=== PATIENT | female | born 1980 | race Caucasian/White ===

== ENCOUNTER 2022-11-09 08:09 | Outpatient (CLI) | payer BC, SELFPAY ==
--- NOTE | ~2022-11-09 | NM_ITS ---
EXAMINATION: NM hepatobiliary wo pharm DATE: 11/09/2022 11:33 INDICATION: Abdominal pain. COMPARISON: None. TECHNIQUE: 4.9 mCi Tc-99m mebrofenin (Choletec) was administered intravenously. After a delay, scint igraphic images of the abdomen were obtained for up to one hour 30 minutes. Then, the patient drank 8 oz Ensure, and imaging was continued for 60 minutes. FINDINGS: Activity progresses to the bowel and gallbladder. Gallbladder ejection fraction (GBEF) was 91%. Note that with this technique, normal GBEF >= 33%. IMPRESSION: 1. Normal hepatobiliary scintigraphy. Reviewed, dictated and finalized at location A.
== END 2022-11-09 08:10 | disposition home or self-care (01) ==
PROVIDERS: PCP Family Medicine; Visit Provider Nurse Practitioner Family
DX: K21.9 Gastro-esophageal reflux disease without esophagitis (principal); R10.9 Unspecified abdominal pain; R68.81 Early satiety
CPT/HCPCS: 78226; A9537

== ENCOUNTER 2024-02-03 09:14 | Outpatient (CLI) | payer BC, SELFPAY ==
--- NOTE | ~2024-02-03 | MM_ITS ---
EXAMINATION: MM diagnostic sofia BI w carlos HISTORY: Not dense: There are scattered areas of fibroglandular density. TECHNIQUE: Additional 3-D tomosynthesis images of the breasts were performed and synthetic 2-D images were generated. CAD analysis was submitted and interpreted. COMPARISON: Comparison to multiple prior studies sequentially, with oldest reviewed study dated 01/10. BREAST PARENCHYMAL COMPOSITION: Not dense: There are scattered areas of fibroglandular density. FINDINGS: There are no suspicious masses, calcifications or architectural distortion in either breast to suggest malignancy. IMPRESSION: 1. No mammographic evidence for malignancy in either breast. 2. Routine yearly screening mammogram and regular clinical breast examination are recommended. BI-RADS Category 1: Negative Reviewed, dictated and finalized at location B. IMPRESSION: 1. No mammographic evidence for malignancy in either breast. 2. Routine yearly screening mammogram and regular clinical breast examination a re recommended. BI-RADS Category 1: Negative
== END 2024-02-03 09:15 | disposition home or self-care (01) ==
LOC: MICIMG 09:16
PROVIDERS: PCP Family Medicine; Visit Provider Surgery
DX: R92.8 Other abnormal and inconclusive findings on diagnostic imaging of breast (principal)
CPT/HCPCS: 77062; 77066; G0279

== ENCOUNTER 2024-10-01 15:25 | Outpatient (CLI) | payer BC, SELFPAY ==
--- OUTSIDE RECORDS SUMMARY | 2024-10-01 15:52 | XMS_ITS | Clinical Summary ---
Author Organization [facility] Address [address] [place] [address] Care Team Providers Care Splunk Dashboard Developer Name Role Phone Isa Bee MD Primary Care Provider Allergies No known active allergies Medications multivitamin-Ca- iron-minerals tablet Take by mouth Active Surgical History Surgery Date Site/Laterality Comments UPPER GASTROINTESTINAL ENDOSCOPY COLONOSCOPY Medical History Medical History Date Comments GERD (gastroesophageal reflux disease) Social History Tobacco Use Types Packs/Day Years Used Date Smoking Tobacco: Never Smokeless Tobacco: Never Tobacco Cessation:Counseling Given: Not Answered AUDIT-C Answer Date Recorded Q1: How often do you have a drink containing alc ohol? Never 01/28/2023 Average Number of Drinks Not on file 023 Q3: How often do you have si x or more drinks on one occasion? 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 Gender Identity Not on file Sexual Orientation Not on file Obstetrics History Last Filed Vital Signs Vital Sign Reading Time Taken Comments Blood Pressure 124/70 01/28/2023 9:42 AM CDT Pulse 63 01/28/2023 9:42 AM CDT Temperature 36.6 C (97.8 F) 01/28/2023 8:03 AM CDT Respiratory Rate 12 01/28/2023 9:42 AM CDT Oxygen Saturation 100% 01/28/2023 9:42 AM CDT Inhaled Oxygen Concentration - - Weight 77.1 kg (170 lb) 01/28/2023 8:03 AM CDT Height 177.8 cm (5' 10) 01/28/2023 8:03 AM CDT Body Mass Index 24.39 01/28/2023 8:03 AM CDT Plan of Treatment Health Maintenance Due Date Last Done Comments Breast Cancer Screening-Mammogram 1979 Cervical Cancer Screening 1979 Depression Screening 1979 Hepatitis C Screening 1979 Varicella Vaccines (1 of 2 - 13+ 2-dose series) 10/19/1992 Hepatitis B Screening 10/19/1997 Regular Well Visit/Exam 18-64 10/19/1997 DTaP/Tdap/Td Vaccine (2 - Td or Tdap) 04/13/2023 04/13/2013 Covid-19 Vaccine (3 - season) 2023 06/16/2020, 05/10/2020 Influenza Vaccine (Season Ended) 2024 02/03/2020, 02/13/2019, 02/24/2018, Additional history exists HPV Vaccines Aged Out No longer eligi ble based on patient's age to complete this topic Pneumococcal vaccine <65 Aged Out No longer eligible based on patient's age to complete this topic Insurance [employer] [place] Advance Directives For more information, please contact: [phone] * Full Code (Latest Code Status on File) Date Activated Date Inactivated Comments 01/28/2023 7:59 AM 01/28/2023 2:38 PM Care Teams Splunk Dashboard Developer Relationship Specialty Start Date End Date Isa Bee MD [address] [place] [address] PCP - General Family Medicine 01/28/23
--- OUTSIDE RECORDS SUMMARY | 2024-10-01 15:52 | XMS_ITS | Referral Summary ---
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
[2024-10-01 16:18] LABS: CRP < 0.5 mg/dL (<1.0)
[2024-10-01 16:39] LABS: Erythrocyte Sedimentation Rate 12 mm/hr (0-20)
[2024-10-05 17:07] LABS: Immunoglobulin A 164 mg/dL (47-310); TTG IGA AB <1.0 U/mL
== END 2024-10-01 15:26 | disposition home or self-care (01) ==
LOC: ANHLAB 15:27
PROVIDERS: PCP Family Medicine; Visit Provider Nurse Practitioner
DX: R19.4 Change in bowel habit (principal); R19.7 Diarrhea, unspecified; R63.4 Abnormal weight loss
CPT/HCPCS: 36415; 82784; 84443; 85652; 86140

== ENCOUNTER 2024-10-06 02:04 | Day surgery (SDC) | payer BC, SELFPAY ==
[2024-10-05 13:16] VITALS: BMI 25.1
--- OUTSIDE RECORDS SUMMARY | 2024-10-06 02:06 | XMS_ITS | Data Portability ---
Author Organization [facility] Address [address] [place] [address] Care Team Providers Care Database Report Writer Name Role Phone BRYANT HENDRIX Primary Care Provider Assessment Encounter Date Assessment Date Assessment LastModified by Organization Details LastModified Time 09/16/2019 09/16/2019 Annual gynecological exam performed. Patient will come back in a year unless there are new symptoms. [email or web address] Not available 09/16/2019 11:48:51 10/11/2020 10/11/2020 Annual gynecological exam performed. Patient will come back in a year unless there are new symptoms. Suggest Calcium with Vitamin D if not eating in diet. Patient advised to get annual flu shot. Recommend yearly physicals and preform monthly breast exams. Genetic testing is available for patients with family history of cancer. Engage in safe sexual practices, use condoms. Encouraged to have daily exercise. Avoid tobacco and illicit drugs, moderation of alcohol. If BMI greater than 25 dietary consult advised. If you have any questions please call or email. [email or web address] Not available 10/11/2020 12:58:04 10/25/2021 10/25/2021 Annual gynecological exam performed. Patient will come back in a year unless there are new symptoms. Not available 10/25/2021 14:28:32 10/30/2022 10/30/2022 Annual gynecological exam performed. Patient will come back in a year unless there are new symptoms. Not available 10/30/2022 12:33:28 11/13/2023 11/13/2023 Annual gynecological exam performed. Patient will come back in a year unless there are new symptoms. [email or web address] Not available 11/13/2023 14:10:13 Plan of Treatment Reminders Order Date Submit Date Provider Last Modified By Organization Details Last Modified Time Details Appointments None recorded. Lab CMP, serum or plasma 2023 024 [facility] (Lab), [address], [place], [address], 5 05:01:23 lipid panel, blood 2023 024 [facility] (Lab), [address], [place], [address], 5 05:01:23 CBC w/ auto diff 2023 024 [facility] (Lab), [address], [place], [address], 5 05:01:23 HbA1c (hemoglobi n A1c), blood 2023 024 [facility] (Lab), [address], [place], [address], 5 05:01:23 TSH, serum or plasma 2023 024 [facility] (Lab), [address], [place], [address], 5 05:01:23 25-hydroxy vitamin D2 + 25-hydroxy vitamin D3, QN, serum or plasma 2023 024 [facility] (Lab), [address], [place], [address], 5 05:01:23 hormone panel, serum or plasma 2023 024 [facility] (Lab), [address], [place], [address], 5 05:01:23 Referral None recorded. Procedures None recorded. Surgeries None recorded. Imaging MAMMO, screening, bilateral 2022 023 [facility] - Radiology Department, [address] , [place], [address], 3 13:50:28 Medication Orders None recorded. Patient TargetsNo targets recorded. Patient InstructionsNo instructions recorded. Reason for Referral None Reported. Results Created Date Observation Date Name Description Value Unit Range Abnormal Flag Note LastModifiedBy Organization Detail LastModifiedTime 09/16/19 20 09/18/2019 pap, LB Pap test thin prep Negati ve for Intrae pithel ial Lesion or Malign qi normal ACCES EVIE #: [id number] Sourc e: Cervi grace/E ndoce rvica l LMP: 08/30 Date Taken : 09/15 Speci men Type: ThinP rep Vial Date Repor juju: 2019 Clini grace Data: Cytot ech: Rei grove, CT( CP) Date Repor juju: 2019 Speci men Adequ acy: Satis facto ry for evalu ation Endoc ervic al/tr ansfo rmati on zone compo nent prese nt Gener al Categ oriza tion: NEGAT CHRISTINE FOR INTRA EPITH ELIAL LESIO N OR BUCKY JAY This speci men has been milton zed by the ThinP rep Imagi ng Syste m, an inter activ e compu ter syste m which gayle ts the lab in the scree jeaneth of ThinP rep Pap Test slide s. Candeo imagi ng, the slide was revie wed by a Cytot echno logis t and/o r Patho logis t. D N A A S S A Y S R E P O R T TEST NAME RESUL TS ----- ---- ----- -- HPV High Risk Scree n (TMA) ThinP rep Vial The human papil lomav irus (HPV) High Risk Scree n is an FDA-a pprov ed in-vi tro ampli fied nucle ic acid test for the quali tativ e detec tion of E6/E7 viral mRNA. Resul ts shogerald d be corre lated with patie nt prese ntati on, histo ry, cervi grace cytol ogy and other clini grace and labor atory findi ngs. See https ://[employer]/s ites/ defau lt/fi 0 /AW- 52600 _002_ 01.pd f for rosa er infor abbey n. Test perfo rmed by [employer] [facility], d/b/a [facility] roup, [address], [place] [address] , [place] ra, DO, Labor atory Dire tor. HPV High Risk *HPV NOT DETEC JUJU (TYPE S 16, 18, 31, 33, 35, 39, 45, 51, 52, 56, 58, 59, 66, 68) *HPV: The human papil lomav irus (HPV) High Risk Mark mejai is an FDA-a pprov ed in-vi tro ampli fied nucle ic acid test for the quali tativ e detec tion of E6/E7 viral mRNA. Resul rafael gooden lated with patijames nt prese ntati on, histo ry, cervi grace cytol ogy and other clini grace and labor atory findi ngs. See https ://[employer]/s ites/ defau lt/fi 018-0 /AW- 15511 _002_ 01.pd f for furvickie er infor abbey n. Test perfo rmed by [employer] [facility], d/b/a Ran rincon, [address], [place] [address] , [place] ra, , Labor atory Dire tor. End of Repor t Techn ical servi tomeka provi ded by [employer], d/b/a Ran rincon, [address] [place] [address] Gregorio Sinclair MD, Labor ator Dire tor. Case revie wed and diagn osis rende red at [employer] [facility], d/b/a Ran roup, [address] [place] [address] Gregorio Sinclair MD, [facility] tor. CONFI DENTI AL Not Available [facility] ([facility]) [address], [place], [address], 09/18/2019 11:54:29 09/16/19 20 09/17/2019 HPV DNA, high- risk HPV high risk NOT DETECT ED normal Not Available [facility] ([facility]) [address], [place], [address], 09/18/2019 11:54:30 10/26/19 22 10/25/2021 IMAGE GUIDE D PAP AND HPV REGAR DLESS image guided Pap, HPV regardless of Pap result SEE RESULT S BELOW CASE REPOR T: Cytol ogy Gynec ologi grace Repor t Case: [id number] Autho smiley schwarz Provi ian: Cristo Prather Colle cted: 10/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 Alber vargas d by Gracy Britt , CT on 2021 at 4:18 PM ----- ----- ----- ----- ----- ----- ----- ----- ----- ----- ----- ----- ----- ----- ----- ----- ----- ---- HPV RESUL TS: HPV mRNA E6/E7 : No HPV mRNA Detec juju NOTE: This high risk HPV mRNA assay detec ts fourt een high- risk HPV types (16, 18, 31, 33, 35, 39, 45, 51, 52, 56, 58, 59, 66, 68) witho ut diffe renti ation . COMME NT: Note: This speci men was revie wed by a Cytot echno logis t and/o r Patho logis t (as indic ated in this repor t) after evalu ation using the Thinp rep Imagi ng Syste m. CLINI GRACE INFOR MATIO N: Menst rual Statu s: LMP (if appli cable ): Clini grace Histo ry/Pr eviou s Pap: Type of Neopl kierra (if appli cable ): Signi fican t Clini grace Findi ngs: Other Histo ry: Hormo ramo (if appli cable ): PAP EDUCA CHASITY L NOTE: The Pap Test is a scree jeaneth test with an inher ent false negat christine rate. Liqui d-bas ed sampl ing may decre ase, but will not elimi emre, false negat christine resul ts. A negat christine resul t does not precl ude the prese nce and/o r devel opmen t of disea se, since the prese nce of abnor mal cells in the sampl e depen ds on the locat ion of the lesio n and sampl ing techn ique. Jimi nued regul ar scree jeaneth is the best metho d of cance r preve ntion . If repor juju cytol ogic findi ng do not corre late with physi grace and/o r histo rical findi ngs, furth er inves tigat ion is recom antonio d, as clini jean-paul mcnair nted. 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 Elect melokia lukekylah sam d by Lali Doherty ed, CT on 2022 at 9:39 PM ----- ----- ----- ----- ----- ----- ----- ----- ----- ----- ----- ----- ----- ----- ----- ----- ----- ---- HPV RESUL TS: HPV mRNA E6/E7 : No HPV mRNA Detec juju NOTE: This high risk HPV mRNA assay detec ts fourt een high- risk HPV types (16, 18, 31, 33, 35, 39, 45, 51, 52, 56, 58, 59, 66, 68) witho ut diffe renti ation . COMME NT: This speci men was revie wed by a Cytot echno logis t and/o r Patho logis t (as indic ated in this repor t) after evalu ation using the Thinp rep Imagi ng Syste m. CLINI GRACE INFOR MATIO N: Menst rual Statu s: LMP (if appli cable ): Clini grace Histo ry/Pr eviou s Pap: Type of Neopl kierra (if appli cable ): Signi fican t Clini grace Findi ngs: Other Histo ry: Hormo ramo (if appli cable ): PAP EDUCA CHASITY L NOTE: The Pap Test is a scree jeaneth test with an inher ent false negat christine rate. Liqui d-bas ed sampl ing may decre ase, but will not elimi emre, false negat christine resul ts. A negat christine resul t does not precl ude the prese nce and/o r devel opmen t of disea se, since the prese nce of abnor mal cells in the sampl e depen ds on the locat ion of the lesio n and sampl ing techn ique. Jimi nued regul ar scree jeaneth is the best metho d of cance r preve ntion . If repor juju cytol ogic findi ng do not corre late with physi grace and/o r histo rical findi ngs, furth er inves tigat ion is recom antonio d, as clini jean-paul warra nted. Not Available [facility] (Lab) [address], [place], [address], 10/31/2022 22:41:43 11/19/19 21 11/18/2020 MAMMO , scree jeaneth, bilat eral No observ ation record ed. layran [place] [address], [place], [address], 11/22/2020 14:36:45 11/21/19 22 11/20/2021 MAMMO , scree jeaneth, bilat eral No observ ation record ed. [email or web address] [place] [address], [place], [address], 11/20/2021 16:35:25 12/01/19 23 11/26/2022 MAMMO , scree jeaneth, bilat eral No observ ation record ed. CHETNA [facility] Records Dept [address] [place], [address], 12/03/2022 10:58:19 07/18/19 24 07/18/2023 MAMMO , diagn ostic , digit al, bilat eral No observ ation record ed. [email or web address] [place] [address], [place], [address], 08/13/2023 16:58:51 07/18/19 24 07/18/2023 US, leela t, edel sow No observ ation record ed. [email or web address] [facility] - Radiology Department [address], [place], [address], 07/24/2023 17:10:50 Result Notes None recorded. Problems Name Problem SNOMED Code Status Onset Date Resolution Date Notes Provider Name and Address Organization Details Recorded Time Infectio n screenin g Completed 201410/06/2020 Encounte r for screenin g for oth infec/pa rastc diseases ;Recorde d Elsewher e: No Locat ion: [facility] S ource: EHR Paving Block Cutter edita: N Practi ce ID: 0001 Ari lable Time: 10:30:00 AM Gracie esteves, [facility] 13:15:57 Syphilis test finding [id number] Completed 201410/06/2020 Encntr screen for infectio ns w sexl mode of transmis s;Record ed Elsewher e: No Locat ion: [facility] S ource: EHR Paving Block Cutter edita: N Practi ce ID: 0001 Ari lable Time: 10:30:00 AM Gracie esteves, [facility] 13:16:24 Left lower quadrant pain [id number] Completed 201510/06/2020 LLQ pain;Rec orded Elsewher e: No Locat ion: [facility] S ource: EHR Paving Block Cutter edita: N Practi ce ID: 0001 Ari lable Time: 02:45:00 PM Gracie esteves [facility] 13:16:00 Pregnanc y test negative [id number] Completed 201510/06/2020 Encounte r for pregnanc y test, result negative ;Recorde d Elsewher e: No [facility] Paving Block Cutter edita: N Practi ce ID: 0001 Ari lable Time: 10:45:00 AM Gracie esteves [facility] 13:16:04 Finding of regulari ty of menstrua l cycle Completed 201410/06/2020 Irregula r bleeding ;Recorde d Elsewher e: No Locat ion: [facility] S ource: EHR Paving Block Cutter edita: N Practi ce ID: 0001 Ari lable Time: 10:30:00 AM Gracie Emmanueltz danielito, [facility] 13:15:53 Screenin g for malignan t neoplasm of cervix Completed 201010/06/2020 Screenin g for malignan t neoplasm s of the cervix;R ecorded Elsewher e: No Locat ion: [facility] S ource: EHR Paving Block Cutter edita: N Practi ce ID: 0001 Ari lable Time: 04:00:00 PM Gracie esteves, [facility] 13:16:09 Removal of intraute rine device Completed 201110/06/2020 REMOVAL OF IUD;Prac maren ID: 0001 Gracie Roberts danielito, [facility] 13:16:07 Ill-defi deric intestin al infectio n Completed 201110/06/2020 No Show Fee;Prac maren ID: 0001 Gracie esteves, [facility] 13:15:55 Speciali zed medical examinat ion Completed 201110/06/2020 Routine gynecolo gical examinat ion;Prac maren ID: 0001 Gracie Roberts danielito, [facility] 13:16:22 Postcoit al finding [id number] Completed 201510/06/2020 Postcoit al and contact bleeding ;Recorde d Elsewher e: No Locat ion: [facility] S ource: EHR Paving Block Cutter edita: N Practi ce ID: 0001 Ari lable Time: 02:45:00 PM Gracie esteves [facility] 1 13:16:[address] Concept Completed 201810/06/2020 Encntr for primer expeditor and drier exam (general ) (routine ) w/o abn findings ;Recorde d Elsewher e: No Locat ion: [facility] S ource: EHR Paving Block Cutter edita: N Aveti ce ID: 0001 Ari lable Time: 09:00:00 AM Gracie Roberts [facility] 1 13:16:14 Adult health examinat ion Completed 201310/06/2020 ROUTINE MEDICAL EXAM;Rec orded Elsewher e: No Locat ion: [facility] S ource: EHR Paving Block Cutter edita: N Aveti ce ID: 0001 Ari lable Time: 04:00:00 PM Gracie esteves [facility] [address] 13:15:[address] Concept Completed 201410/06/2020 Encntr for general adult medical exam w/o abnormal findings ;Recorde d Elsewher e: No Locat ion: [facility] S ource: EHR Paving Block Cutter edita: N Aveti ce ID: 0001 Ari lable Time: 10:30:00 AM Gracie esteves [facility] 1 13:16:11 Problem Notes None recorded. Procedures Surgical History Date Name Laterality Status Provider Name and Address Organization Details Recorded Time 11/21/19 22 Date of Last Mammogram completed Talya Sloan [facility] 10/30/2022 12:35:33 10/26/19 22 Date of Last Pap Smear completed Talya Sloan [facility] 10/30/2022 12:34:48 04/22/19 18 completed Gracie Roberts [facility] 10/06/2020 13:08:56 04/22/19 18 Date of Last Colonoscopy completed Aniya Solomon [facility] 10/25/2021 14:31:26 04/22/19 18 Colonoscopy completed Gracie [facility] 10/06/2020 13:11:00 04/28/19 16 Colposcopy completed [facility] 10/06/2020 13:08:23 04/22/19 05 Laparoscopy completed [facility] 10/06/2020 13:11:44 Imaging Results None recorded. Procedure Notes None recorded. Medical Equipment None Reported. Allergies No known drug allergies Medications Name Sig Start Date Stop Date Status Note LastModified by Organization Details LastModified Time doxycycli ne hyclate 100 mg capsule 09/15 completed Not Available Not Available Not Available sucralfat e 1 gram tablet 10/25 completed Not Available Not Available Not Available phenazopy ridine 200 mg tablet TAKE 1 TAB(S) ORALLY 3 TIMES A DAY FOR 2 DAYS 10/30 completed Not Available Not Available Not Available prednison e 20 mg tablet 11/12 completed Not Available Not Available Not Available Protonix 20 mg tablet,de layed release Take 2 tablets every day by oral route. 11/12 completed Not Available Not Available Not Available sulfameth oxazole 800 mg-trimet hoprim 160 mg tablet TAKE 1 TABLET BY MOUTH TWICE A DAY FOR 5 DAYS 10/30 completed Not Available Not Available Not Available benzonata te 100 mg capsule 10/25 completed Not Available Not Available Not Available pantopraz ole 40 mg tablet,de layed release 11/12 completed Not Available Not Available Not Available esomepraz ole magnesium 40 mg capsule,d elayed release TAKE 1 CAPSULE BY MOUTH ONCE DAILY 11/12 completed Not Available Not Available Not Available azelastin e 137 mcg (0.1 %) nasal spray 10/25 completed Not Available Not Available Not Available methylpre dnisolone 4 mg tablets in a dose pack 10/25 completed Not Available Not Available Not Available Prozac 10 mg capsule take 2 capsule by oral route every day 08/29 completed Prescrib ed Elsewher e: Yes Loca tion: [facility] odify By: gerson bray DateTime : 11/28/19 11 02:55:41 PM Not Available Not Available Not Available fluticaso ne propionat e 50 mcg/actua tion nasal spray,sohail pension 10/25 completed Not Available Not Available Not Available magnesium 30 mg tablet 10/11 completed Prescrib ed Elsewher e: Yes Loca tion: Sarah [facility] odify By: becky bray DateTime : 07/04/19 19 09:00:00 AM Not Available Not Available Not Available doxycycli ne hyclate 100 mg tablet 10/25 completed Not Available Not Available Not Available amoxicill in 875 mg-potass ium clavulana te 125 mg tablet 10/25 completed Not Available Not Available Not Available levothyro xine 09/15 completed Not Available Not Available Not Available zinc 09/15 completed Not Available Not Available Not Available Calcium/M agnesium Formula 09/15 completed Not Available Not Available Not Available Estrace 09/15 completed Not Available Not Available Not Available Multi-Vit am 10/25 completed Not Available Not Available Not Available Multi Vitamin 09/15 completed Not Available Not Available Not Available Vitals Date Recorded Body height Body mass index (BMI) Body weight Systolic blood pressure Diastolic blood pressure Provider Name and Address Organization Details Last Updated DateTime 09/16/2019 177.8 cm 22.8 kg/m2 43446.19 g 111 mm[Hg] 73 mm[Hg] Autumn Jay [facility] 0 11:53:34 Date Recorded Body height Body mass index (BMI) Body weight Systolic blood pressure Diastolic blood pressure Provider Name and Address Organization Details Last Updated DateTime 10/11/2020 177.8 cm 23.4 kg/m2 38080.56 g 126 mm[Hg] 71 mm[Hg] Jennifer Dowell [facility] 1 11:10:01 Date Recorded Body height Body mass index (BMI) Body weight Systolic blood pressure Diastolic blood pressure Provider Name and Address Organization Details Last Updated DateTime 10/25/2021 175.26 cm 24.5 kg/m2 43947.33 g 110 mm[Hg] 70 mm[Hg] Aniya Juanito [facility] 2 14:29:43 Date Recorded Body height Body mass index (BMI) Body weight Systolic blood pressure Diastolic blood pressure Provider Name and Address Organization Details Last Updated DateTime 10/30/2022 175.26 cm 25.5 kg/m2 14664.48 g 120 mm[Hg] 74 mm[Hg] Talya Sloan [facility] 3 12:33:52 Date Recorded Body height Body mass index (BMI) Body weight Systolic blood pressure Diastolic blood pressure Provider Name and Address Organization Details Last Updated DateTime 11/13/2023 175.26 cm 26.5 kg/m2 08859.19 g 117 mm[Hg] 72 mm[Hg] Dinora Rodriguez [facility] 4 14:10:33 Social History Question Answer Notes LastModified by Organizat ion Details LastModified Time Tobacco Smoking Status Never Smoker Talya Sloan [facility] 10/30/2022 12:34:15 Do You Have An Advance Directive? No Information n ot available 10/25/2021 Are You Blind Or Do You Have Difficulty Seeing? No Information n ot available 10/25/2021 What Is Your Level Of Caffeine Consumption? Moderate Information not available 10/25/2021 How Much Tobacco Do You Chew? None Information not available 10/25/2021 In The 14 Days Before Symptom Onset, Have You Had Close Contact With A Laboratory-confirm ed COVID-19 While That Case Was Ill? No Information n ot available 10/25/2021 In The 14 Days Before Symptom Onset, Have You Had Close Contact With A Person Who Is Under Investigation For COVID-19 While That Person Was Ill? No Information not available 10/25/2021 Have You Been To An Area Known To Be High Risk For COVID-19? No Information not available 10/25/2021 Are You Deaf Or Do You Have Serious Difficulty Hearing? No Information not available 10/25/2021 What Type Of Diet Are You Following? REGULAR Information n ot available 10/25/2021 What Is The Highest Grade Or Level Of School You Have Completed Or The Highest Degree You Have Received? [id number] Information not available 10/25/2021 Are There Any Guns Present In Your Home? Yes Information not available 10/25/2021 Do You Use Protection During Sex? No Information not available 10/25/2021 Do You Use Your Seat Belt Or Car Seat Routinely? Yes Information not available 10/25/2021 Do You Have Smoke And Carbon Monoxide Detectors In Your Home? Yes Information not available 10/25/2021 How Much Tobacco Do You Smoke? No Information not available 10/25/2021 Do You Use Sunscreen Routinely? No Information not available 10/30/2022 Have You Used IV Drugs? No Information not available 10/25/2021 Sex: Unknown Functional Status Question Answer Note LastModified by Organizat ion Details LastModified Time Do you use any illicit or recreational drugs? No Information not available 10/25/2021 What is your level of alcohol consumption? None Information not available 10/25/2021 Are you able to walk? YESWOREST Information not available 10/25/2021 What is your occupation? Teacher Information not available 10/25/2021 What is your exercise level? Moderate Information not available 10/30/2022 Mental Status Question Answer Note LastModified by Organization D etails LastModified Time Do you feel stressed (tense, restless, nervous, or anxious, or unable to sleep at night)? [id number] Information not available 10/25/2021 Family History Relationship Description Onset Age of this Age Resolved Age Notes LastModified by Organization Details LastModified Time Sister Asthma [email or web address] Not available 11:54:10 Sister Cyst of ovary [email or web address] Not available 2023 14:07:12 Sister Cystic fibrosis Not available 2023 14:07:12 Medical History Condition Response Allergies (Food, seasonal, environmental ) N Other Y Breast Cancer N Drug/Latex Allergies/Reactions N Blood Transfusion N Dermatologic Disorders N Lung Disease N Defects or Inherited Disease N Breast Problem N Gestational Diabetes N Hematologic disorders N Anesthesia Complications N History of STI N Deep Vein Thrombosis N Polycystic ovary syndrome N Anxiety Disorder N Autoimmune disease N Arthritis N Infertility N Polyps N Acid Reflux (GERD) N History of abnormal pap N Cancer N Stroke N Varicosities N Neurologic/Epilepsy Y Endometriosis N High Cholesterol N Headaches Y Fibromyalgia N Kidney Disease N Heart Problems N Kidney or Bladder Problems N Thyroid Problems Y GI Problems N Eating Disorder N Anemia N Art (IVF or FET) N Psychiatric Illness N Ovarian Cancer N Diabetes N Pulmonary (TB, Asthma) N Hepatitis/Liver Disease N No Past Medical History N Eczema N Urinary Tract Infection N Abuse/Domestic Violence N Asthma N Trauma/Violence N Depression/ depression N Heart Disease N Pre-Eclampsia N Hypertension Y Osteoporosis N Thrombophilias N Gynecological History Statement/Question Response Date of Last Mammogram 11/20/2021 Flow Moderate Date of LMP 11/03/2023 N Was last menstrual period normal Y STIs/STDs N Date of Last Colonoscopy 04/22/2017 Desired Control Method Partner Vas ectomy Abnormal Pap N On BCP's at Conception? N Colposcopy 04/28/2015 HPV Vaccine N Duration of Flow (days) 3 Current Control Method Partner Vas ectomy Age at First Child 24 Are cycles usually normal Y Frequency of Cycle (Q days) 19 Sexually Active? Y Menses Monthly Y Age of first menstrual cycle 10 Date of Last Pap Smear 10/25/2021 Sexual Problems? N LMP Definite 04/22/2017 N Obstetrics History GPAL:G 2 P 2 0 0 2 Type Value Full Term 2 Living 2 Total 2 Past Encounters Encounter ID Performer Location Encounter Start Date Encounter Closed Date Diagnosis/Indication Diagnosis SNOMED-CT Code Diagnosis ICD10 Code Diagnosis Note [id number] Marlena Rosas [facility] [address] [address] 09/16/2019 11:46:53 09/16/2019 12:36:33 Gynecologic examination 61946870 Z01.419 Suggested Calcium with Vitamin D 1200-1500m g daily. Patient advised to get an annual flu shot in the fall and she could obtain at [facility] or [facility] clinic. Also to obtain TDap vaccinatio n if you have not had one in the last 10 years. Recommend yearly mammograms . Encouraged monthly self breast exams. Encourage safe sexual practices, to use condoms and limit partners if not already in a monogamous relationsh ip. Engage in daily exercise of low impact aerobic exercise 45-60 minutes 4-5 times weekly. Avoid tobacco and illicit drugs as well as using moderation with alcohol intake less than 1-2 8 oz beverages daily. This lifestyle behavior pattern will lead to less health conditions and longer life span. If BMI greater than 25 weight watchers or dietary consult advised. All questions have been answered. Patient appears to understand informatio n, but if you have any questions please call or respond to this email. [id number] Ellen Fofana, [facility] [address],[place] [address] 10/11/2020 10:59:26 10/11/2020 14:09:10 Gynecologic examination [id number] Z01.419 [id number] Marlena Rosas [facility] [address],[place] [address] 10/25/2021 14:07:04 10/25/2021 15:11:13 Gynecologic examination [id number] Z01.419 Suggested Calcium with Vitamin D 1200-1500m g daily. Patient advised to get an annual flu shot in the fall and she could obtain at [facility] or [facility] clinic. Also to obtain TDap vaccinatio n if you have not had one in the last 10 years. Recommend yearly mammograms . Encouraged monthly self breast exams. Encourage safe sexual practices, to use condoms and limit partners if not already in a monogamous relationsh ip. Engage in daily exercise of low impact aerobic exercise 45-60 minutes 4-5 times weekly. Avoid tobacco and illicit drugs as well as using moderation with alcohol intake less than 1-2 8 oz beverages daily. This lifestyle behavior pattern will lead to less health conditions and longer life span. If BMI greater than 25 weight watchers or dietary consult advised. All questions have been answered. Patient appears to understand informatio n, but if you have any questions please call or respond to this email. Pap/hpv sentSTD Screen declinedGe netic Screen discussedC olon Screen naDexa Screen naRoutine Labs UTD PCPMammo ordered [id number] Marlena Rosas [facility] [address] [address] 10/30/2022 12:06:55 10/31/2022 10:34:13 Gynecologic examination [id number] Z01.419 Z11.51 Suggested Calcium with Vitamin D 1200-1500m g daily. Patient advised to get an annual flu shot in the fall and she could obtain at [facility] or [facility] Also to obtain TDap vaccinatio n if you have not had one in the last 10 years. Recommend yearly mammograms . Encouraged monthly self breast exams. Encourage safe sexual practices, to use condoms and limit partners if not already in a monogamous relationsh ip. Engage in daily exercise of low impact aerobic exercise 45-60 minutes 4-5 times weekly. Avoid tobacco and illicit drugs as well as using moderation with alcohol intake less than 1-2 8 oz beverages daily. This lifestyle behavior pattern will lead to less health conditions and longer life span. If BMI greater than 25 weight watchers or dietary consult advised. All questions have been answered. Patient appears to understand informatio n, but if you have any questions please call or respond to this email. Pap/hpv sentSTD Screen declinedGe netic Screen discussedC olon Screen naDexa Screen naRliberty hospitaline Labs UTD PCPMammo ordered Screening mammography 24 [id number] Z12.31 [id number] Elise Jesejarred [facility] [address] [address] 11/13/2023 14:05:24 11/13/2023 16:47:02 Gynecologic examination [id number] Z01.419 WWEpaps Q3-5 yrs per asccp guidelines mammogram UTD / follows with breast specialist fasting labs ordered / hormone levels per pt request It is strongly advised to have an annual flu shot and up can obtain at most pharmacies . If you have not had a TDap shot in the last 10 years you should obtain one as well. Discussed with patient & provided with informatio n regarding the HPV vaccine if applicable . Encourage safe sexual practices, to use condoms and limit partners if not already in a monogamous relationsh ip. Do monthly self breast exams and have yearly mammogram done. BRCA testing is now available for patients with strong genetic history of female cancer. If interested contact the office. Engage in regular exercise. Avoid tobacco and illicit drugs This lifestyle behavior pattern will lead to less health conditions and longer life span. If BMI greater than 25 dietary consult advised. Patient received above instructio ns, and questions have been answered. Adult heal th examination [id number] Z00.00 Fatigue [id number] R53.83 Recommende d updated labs - orderedenc ouraged annual exam with PCPwill reach out to pt with results when available Health Concerns Section Related Observation LastModified by Organization Detai ls LastModified Time None Recorded Concern Status LastModified by Organization Details LastModified Time None Recorded Advance Directives Directive N: Payers Insurance Date Sequence Insurance Name Policy Number Policy Perry Covered Member ID Perry Member ID Guarantor Name 10/29/2022 1 [place] 112 Kayden Green [id number] Kayden Green 11/13/2023 1 [place] [id number] Mare Green [id number] Kayden Green 11/11/2023 1 [place] 112 Kayden Green [id number] Kayden Green Notes Date Note Type Note Provider Name and Address Organization Details Recorded Time 09/16/2019 text/html Annual GYNReport ed bypatient.History: no gynecologic complaints Menstrual cycle:Normal menses Urinary symptoms:No hematuria; No incontinence Vulva:No genital lesion Vagina:Normal vaginal discharge Breast:No breast pain; No breast lump; No nipple discharge Sexual complaints:No sexual complaints; No pain during intercourse; Normal libido Menopausal Symptoms:No menopausal symptoms; Normal vaginal lubrication Psychological symptoms:No depression; No anxiety; No PMDD Preventive measures:Encourage self breast examination; Encourage regular exercise; Encourage no tobacco use; Encourage regular mammograms starting age 40; Followed with Q3 year pap smear and high risk HPV typing; Needs to schedule mammogram Marlena Rosas NARESH- [address], [place], [address], [facility] 09/16/2019 12:10:50 10/11/2020 text/html Annual GYNReport ed bypatient.Menstrua l cycle:Normal menses Urinary symptoms:No hematuria; No incontinence Vulva:No genital lesion Vagina:Normal vaginal discharge Breast:No breast pain; No breast lump; No nipple discharge Current Contraception:Camas gamous relationship; Partner had vasectomy Sexual complaints:No sexual complaints; No pain during intercourse; Normal libido Menopausal Symptoms:No menopausal symptoms; Normal vaginal lubrication Psychological symptoms:No depression; No anxiety; No PMDD Preventive measures:Encourage self breast examination; Encourage regular exercise; Encourage regular mammograms starting age 40Notes:doing well, teacher, 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 10/11/2020 12:58:23 10/25/2021 text/html Annual GYNReport ed bypatient.History: no gynecologic complaints Menstrual cycle:Normal menses Urinary symptoms:No hematuria; No incontinence Vulva:No genital lesion Vagina:Normal vaginal discharge Breast:No breast pain; No breast lump; No nipple discharge Current Contraception:Sati sfied with current contraception; Partner had vasectomy Sexual complaints:No sexual complaints; No pain during intercourse; Normal libido Menopausal Symptoms:No menopausal symptoms; Normal vaginal lubrication Psychological symptoms:No depression; No anxiety; No PMDD Preventive measures:Encourage self breast examination; Encourage regular exercise; Encourage no tobacco use; Encourage regular mammograms starting age 40; Followed with yearly pap smears; Needs to schedule mammogram Marlena Rosas [facility]- [address], [place], [address], [facility] 10/25/2021 15:01:02 10/30/2022 text/html Annual GYNReport ed bypatient.History: no gynecologic complaints Menstrual cycle:Normal menses Urinary symptoms:No hematuria; No incontinence Vulva:No genital lesion Vagina:Normal vaginal discharge Breast:No breast pain; No breast lump; No nipple discharge Current Contraception:Sati sfied with current contraception; Partner had vasectomy Sexual complaints:No sexual complaints; No pain during intercourse; Normal libido Menopausal Symptoms:No menopausal symptoms; Normal vaginal lubrication Psychological symptoms:No depression; No anxiety; No PMDD Preventive measures:Encourage self breast examination; Encourage regular exercise; Encourage no tobacco use; Encourage regular mammograms starting age 40; Needs to schedule mammogram JEREMY Flores- [address], [place], [address], [facility] 10/30/2022 18:44:47 11/13/2023 text/html Annual GYNReport ed bypatient.Menstrua l cycle:Normal menses Urinary symptoms:No hematuria; No incontinence Vulva:No genital lesion Vagina:Normal vaginal discharge Breast:No breast pain; No breast lump; No nipple discharge Current Contraception:Sati sfied with current contraception; Partner had vasectomy Sexual complaints:No sexual complaints; No pain during intercourse; Normal libido Menopausal Symptoms:No menopausal symptoms; Normal vaginal lubrication Psychological symptoms:No depression; No anxiety; No PMDD Preventive measures:Encourage self breast examination; Encourage regular exercise; Encourage no tobacco use; Encourage regular mammograms starting age 40Notes:[id number] - Partner with vasectomyno h/o abnormal papslast pap 10/2022 : nilm, HPV (-) mammogram UTD / follows with breast specialist. has been having Q6 month imaging. Has not needed any additional testing/biopsies per pt less energy, often fatigued for the past year JEREMY Brower [address], [place], [address], [facility] 11/13/2023 16:46:09 OBGyn Episode Ob Episode Information Episode Created Date Number of Fetuses Patient Bloodtype Patient rh Status Prepregnancy Weight lbs Domestic Partner Domestic Partner Phone Father Name Financial Solutions Advisor Status 09/16/19 20 1 CLOSED Fetus Data First Name Last Name Admitted to NICU Weight (g) Sex Living Outcome Pediatric Complications Fetus ID Race Codes Race Delivery Type 3656.85 8704 Full Term 1759 Vaginal Delivery Chris Calculation Initial Chris Date Initial Exam Date Initial Exam Provider Initial Ultrasound Date Last Menstrual Period Date Ultra Sound Weeks Gestation 0 Eighteen To Twenty Week Chris Update Ultra Sound Date Fundal Height At Umbil Quickening Date Ultra Sound Latest Weeks Gestation Final Chris Confirmed By Final Chris Confirmed Date Final Chris Date Ultra Sound Latest Days Gestation 0 0 Menstrual History Last Menstrual Date Menses Monthly On Bcp Conception Prior Menses Frequency Hcg Plus Date Menarche Onset Age Delivery Information Delivery Date Delivery Type Labor Anesthesia Weeks Gestation Incision Type Labor Labor Length Hrs Delivered By Post Complications Tubal Sterilization Discharge Date Comments 6 39 GHTN Discharge Information Feeding Method Contraceptive Method Maternal HG B and HCT Levels Ob Episode Information Episode Created Date Number of Fetuses Patient Bloodtype Patient rh Status Prepregnancy Weight lbs Domestic Partner Domestic Partner Phone Father Name Financial Solutions Advisor Status 09/16/19 20 1 CLOSED Fetus Data First Name Last Name Admitted to NICU Weight (g) Sex Living Outcome Pediatric Complications Fetus ID Race Codes Race Delivery Type [phone] [phone] F Full Term 1760 Vaginal Delivery Chris Calculation Initial Chris Date Initial Exam Date Initial Exam Provider Initial Ultrasound Date Last Menstrual Period Date Ultra Sound Weeks Gestation 0 Eighteen To Twenty Week Chris Update Ultra Sound Date Fundal Height At Umbil Quickening Date Ultra Sound Latest Weeks Gestation Final Chris Confirmed By Final Chris Confirmed Date Final Chris Date Ultra Sound Latest Days Gestation 0 0 Menstrual History Last Menstrual Date Menses Monthly On Bcp Conception Prior Menses Frequency Hcg Plus Date Menarche Onset Age Delivery Information Delivery Date Delivery Type Labor Anesthesia Weeks Gestation Incision Type Labor Labor Length Hrs Delivered By Post Complications Tubal Sterilization Discharge Date Comments 8 38 Discharge Information Feeding Method Contraceptive Method Maternal HG B and HCT Levels
--- OUTSIDE RECORDS SUMMARY | 2024-10-06 02:06 | XMS_ITS | Patient Health Record ---
Author Organization [facility] Address [address] [place] [address] Care Team Providers Care Patient Registration Clerk Name Role Phone Isa Bee MD Primary Care Provider Unavail able ELSIE QUINN, VIVIAN Unavailable [phone] Reason For Referral No Information Plan Of Treatment No Information Insurance Providers Payer Name Payer Address Payer Phone Subscriber Number Group Number Insured Name Patient Relationship to Insured Coverage Start Date Coverage End Date [employer] [employer] [address] [place], [place] [id number] Kayden Green jr Spouse - patient is the spouse of the insured
--- OUTSIDE RECORDS SUMMARY | 2024-10-06 02:06 | XMS_ITS | Clinical Summary ---
Author Organization [facility] Address [address] [place] [address] Care Team Providers Care Medical Billing Supervisor Name Role Phone Isa Bee MD Primary [...] on file Legal Sex Female 1:53 AM [employer] Gender Identity Not on file Sexual Orientation [...] patient's age to complete this topic Insurance [employer] [place] Advance Directives For more information, please contact: [phone] * Full Code (Latest Code Status on File) Date Activated Date Inactivated Comments 01/28/2023 7:59 AM 01/28/2023 2:38 PM Care Teams Medical Billing Supervisor Relationship Specialty Start Date End Date Isa Bee MD [address] [place] [address] PCP - General Family Medicine 01/28/23
--- OUTSIDE RECORDS SUMMARY | 2024-10-06 02:06 | XMS_ITS | Referral Summary ---
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
[2024-10-06 09:34] VITALS: BP 104/67; PULSE 73; RESP 12; TEMP 36.1; O2SAT 100; BMI 25.4
[2024-10-06 09:49] LABS: BEDSIDEPREGUCG Negative (Negative)
[2024-10-06] MEDS: LACTATED RINGERS 1,000 ML 150 ML IV CONT (09:54)
--- NOTE | 2024-10-06 09:55 | WPDANESEPPF ---
Anes - Initial Pre Proc Eval Procedure: Operation Date: 10/06/24 11:00 Proposed Procedures p Diagnostic Colonoscopy - Tk Stevens MD Date/Time: 10/06/24 09:55 Surgeon: Tk Stevens MD Pre Op Diagnosis: Diarrhea, unspecified, Change in bowel habit Patient Data Age: 43 Gender: F Height: 1.78 m Weight: 80.3 kg Last Vital Signs Temp 36.1 C L 10/06/24 09:34 Pulse 73 10/06/24 09:34 Resp 12 10/06/24 09:34 BP 104/67 10/06/24 09:34 Pulse Ox 100 10/06/24 09:34 O2 Del Method Room Air 10/06/24 09:34 Allergies Allergy/AdvReac Type Severity Reaction Status Date / Time No Known Allergies Allergy Mild Verified 10/06/24 09:40 Home Medications ?Medication ?Instructions ?Recorded ?Confirmed ?Type budesonide 3 mg 9 mg (3 x 3 mg) PO QAM #90 ea 10/01/24 10/06/24 Rx capsule,delayed,extended release colestipol 1 gram tablet (Colestid) 1 g PO BID PRN diarrhea #60 tabs 10/01/24 10/05/24 Rx Laboratory Tests 10/06/24 09:46 POC Urine HCG, Qual Negative (Negative) Patient hx anesthesia problems: none Family hx anesthesia problems: none Results Review: All pre-operative results and documents have been reviewed as part of the pre-operative evaluation. [facility] Social History Social History Smoking status: Never smoker Alcohol intake: never Substance use: never Substance use type: does not use Do You Feel Safe in your Home?: Yes Lack of Transportation: No Lack of Food: Never True Current Housing: I Have Housing Concerned About Future Housing: No Difficulty Paying Gas/Electric Bills: No Difficulty Paying for Meds: No Currently Unemployed: No Education: Master's Degree or Higher Difficulty w/ Childcare or Family Care: No Living arrangements: with family Spiritual care concerns: No Anes - Eval Final PreProcedure Day of Procedure 10/06/24 09:55 Patient weight: normal Heart: regular rate and rhythm Lungs: clear to auscultation Airway: Mallampati scale class II Neurological: alert and oriented Last oral intake: >/= 8 hours ASA classification: II Emergent: no Anesthetic plan: proceed Anesthesia type and monitoring: general GIVS and standard monitoring Results Review: All pre-operative results and documents have been reviewed as part of the pre-operative evaluation. Informed Consent: The patient's anesthetic plan and its attendant risks and benefits were discussed with the patient/family/POA. Questions were solicited and answers provided to the satisfaction of the patient/family/POA.
--- NOTE | 2024-10-06 10:14 | PM.IMHP ---
H&P: HPI History of Present Illness Date/Time: 10/06/24 10:14 Chief Complaint: Chronic diarrhea Narrative: after awaiting when she got acute diarrhea, she continues to have this picture chronic associated with abdominal discomfort on borborygmi. She has been receiving cholestyramine and symptomatic medication with no relief. Her stool exams are negative. She is now referred for colonoscopy. Review of Systems Review of Systems: All systems reviewed & are unremarkable except as noted in HPI and below PMFSH Social History Social History Smoking status: Never smoker Alcohol intake: never Substance use: never Substance use type: does not use Do You Feel Safe in your Home?: Yes Lack of Transportation: No Lack of Food: Never True Current Housing: I Have Housing Concerned About Future Housing: No Difficulty Paying Gas/Electric Bills: No Difficulty Paying for Meds: No Currently Unemployed: No Education: Master's Degree or Higher Difficulty w/ Childcare or Family Care: No Living arrangements: with family Spiritual care concerns: No Meds Home Medications and Allergies Home Medications ?Medication ?Instructions ?Recorded ?Confirmed ?Type budesonide 3 mg 9 mg (3 x 3 mg) PO QAM #90 ea 10/01/24 10/06/24 Rx capsule,delayed,extended release colestipol 1 gram tablet (Colestid) 1 g PO BID PRN diarrhea #60 tabs 10/01/24 10/05/24 Rx Allergies Allergy/AdvReac Type Severity Reaction Status Date / Time No Known Allergies Allergy Mild Verified 10/06/24 09:40 Vital Signs Vital Signs - 24 hr 10/06/24 09:34 Temperature 96.9 F L Pulse Rate 73 Respiratory Rate 12 Blood Pressure 104/67 Pulse Oximetry 100 Oxygen Delivery Room Air Exam Const: General: cooperative and healthy appearing Resp: Effort & Inspection: normal respiratory effort and able to speak in complete sentences Auscultation: clear to auscultation bilaterally Cardio: Rate: regular rate Rhythm: regular rhythm GI: Inspection: normal to inspection GI Palp: No No hepatosplenomegaly present Auscultation: normal bowel sounds Rectal Exam: deferred Skin: General skin exam: normal color Psych: Appearance: grossly normal Mental Status: mental status grossly normal Assessment and Plan Assessment and plan (1) Diarrhea: Code(s): R19.7 - Diarrhea, unspecified Status: Acute Assessment and Plan: Will perform colonoscopy with biopsies to rule out microscopic colitis. 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 will proceed with colonoscopy and biopsies.
[2024-10-06] MEDS: SIMETHICONE ORAL SUSPENSION 20 MG/0.3 ML 30 ML BOTTLE 0.6 ML IRRIGATION (10:28)
--- NOTE | 2024-10-06 10:33 | S_PTH ---
PATIENT: Mare Green LOC: [facility] U#:[id number] AGE/SX: 43/F ROOM: RE10/06/[address]: Tk Stevens MD : 1980 BED: DIS: 10/06/2024 SPEC #: [id number] RECD: 10/06/24 11:40 STATUS: GREGORIO REDarwin #: [id number] MAGALI: 10/06/24 10:[address]: Tk Stevens DEPT: [facility] Surgical RECD BY: Everton Serrano ENTERED: 10/06/24 11:41 SP TYPE: Surgical OTHR DR: Isa Bee MD Tissues: A - Colon Biopsy B - Colon Biopsy Procedures: Hematoxylin and Eosin Stain Gross and Microscopic Level 4
[2024-10-06 10:38] VITALS: BP 100/59; PULSE 69; RESP 20; O2SAT 100
[2024-10-06 10:48] VITALS: BP 103/60; PULSE 68; RESP 20; O2SAT 100
[2024-10-06 10:58] VITALS: BP 112/72; PULSE 61; RESP 20; O2SAT 100
== END 2024-10-06 10:59 | disposition home or self-care (01) ==
PROVIDERS: Anesthesiology; PCP Family Medicine; Referring Provider Nurse Practitioner; Visit Provider Internal Medicine Gastroenterology
PROC: 0DJD8ZZ Inspection of Lower Intestinal Tract, Via Natural or Artificial Opening Endoscopic (ICD-10-PCS; CPT 45378; principal; 2024-10-06 11:00)
DX: R19.7 Diarrhea, unspecified (principal); K63.89 Other specified diseases of intestine
CPT/HCPCS: 45380; 88305; J2003; J2704; J7120

== ENCOUNTER 2025-02-26 14:43 | Outpatient (CLI) | payer BC, SELFPAY ==
--- NOTE | ~2025-02-26 | MM_ITS ---
EXAMINATION: MM screening [facility] BI w carlos HISTORY: Screening TECHNIQUE: Craniocaudal and mediolateral oblique 3-D tomosynthesis images were obtained and synthetic 2-D images were generated. CAD analysis was submitted and interpreted. COMPARISON: Comparison to multiple prior studies sequentially, with oldest reviewed study dated 11/18/2020. BREAST PARENCHYMAL COMPOSITION: Not Dense: The breasts are almost entirely fatty. FINDINGS: There is no evidence of suspicious mass, calcification, or architectural distortion to suggest malignancy in either breast. There has been no suspicious interval change. IMPRESSION: 1. No mammographic evidence of malignancy. 2. Recommend routine screening mammography in one year. BI-RADS Category 1: Negative Reviewed, dictated and finalized at location O. L INSPECTOR BALANCE WHEEL
== END 2025-02-26 14:44 | disposition home or self-care (01) ==
LOC: MICIMG 14:43
PROVIDERS: PCP Family Medicine; Visit Provider Obstetrics & Gynecology
DX: Z12.31 Encounter for screening mammogram for malignant neoplasm of breast (principal)
CPT/HCPCS: 77063; 77067